=== PATIENT | male | born 1995 | race African-American/Black ===

== ENCOUNTER 2021-11-13 19:07 | Emergency (ER) | payer BC, OTHER ==
[~2021-11-13] VITALS: Ht 177.8 cm; Wt 63.0 kg
[2021-11-13 19:48] VITALS: BP 116/75
[2021-11-13] MEDS ORDERED: AMOXICILLIN 500 MG CAPSULE PO ONE (23:00)
[2021-11-13] MEDS ORDERED: IBUPROFEN 600MG TABLET PO ONE (23:00)
[2021-11-13] MEDS ORDERED: AMOX-494 MT (23:02)
[2021-11-13] MEDS ORDERED: IBUP-2029 MT (23:02)
== END 2021-11-13 23:18 | disposition home or self-care (01) ==
LOC: ER 19:07
DX: K08.89 Other specified disorders of teeth and supporting structures (principal); J45.909 Unspecified asthma, uncomplicated
CPT/HCPCS: 99281